=== PATIENT | male | born 1990 | race African-American/Black ===

== ENCOUNTER 2018-04-05 10:46 | Emergency (ER) | payer OTHER ==
[2018-04-05 11:42] LABS: GLUCOSE, URINE (UA) NEGATIVE (NEGATIVE); KETONES,URINE (UA) TRACE mg/dL (NEGATIVE); LEUKOCYTE ESTERASE, URINE MODERATE (NEGATIVE); NITRITE,URINE POSITIVE (NEGATIVE); OCCULT BLOOD,URINE TRACE-INTA (NEGATIVE); PROTEIN,URINE TRACE mg/dL (NEGATIVE); UROBILINOGEN,URINE 2 E.U./dL (NORMAL)
--- NOTE | 2018-04-05 11:52 | ED Physician Documentation ---
PD HPI MALE - Stated complaint Stated Complaint: MALE - Chief complaint Chief Complaint: Abd Pain - History obtained from History obtained from: Patient - History of Present Illness Timing - onset: How many days ago (several) Timing - duration: Days Timing - details: Gradual onset, Still present Associated symptoms: Dysuria, Discharge PD HPI MALE CONTRIB FACTORS: Sexually active Recently seen: Clinic (has had discharge several days and went to [facility] with urethral culture done, and has not heard back results. Was supposed to get results yesterday but did not and now is 3 days weekend and he does not want symptoms to go untreated. No meds from [facility] at the time of the visit.) Review of Systems Constitutional: denies: Fever, Chills Throat: denies: Sore throat GI: denies: Nausea, Vomiting : reports: Dysuria, Discharge PD PAST MEDICAL HISTORY - Past Medical History Cardiovascular: None Respiratory: None - Allergies Allergies/Adverse Reactions: Allergies Allergy/AdvReac Type Severity Reaction Status Date / Time No Known Drug Allergies Allergy Verified 04/05/18 10:55 PD ED PE NORMAL - Vitals Vital signs reviewed: Yes - General General: Alert and oriented X 3, No acute distress, Well developed/nourished - HEENT HEENT: Pharynx benign - Male Male : Other (external normal. Meatal redness. ) - Derm Derm: Normal color, Warm and dry Results - Vitals Vitals: Oxygen O2 Source Room air - Labs Labs: Microbiology 04/05/18 11:19 Urine Culture - Final Urine,Random NO AEROBIC GROWTH AT 24 HOURS Laboratory Tests 04/05/18 04/05/18 11:19 11:19 Urine Color DARK YELLOW Urine Clarity CLOUDY Urine pH 6.0 Ur Specific [place] 1.025 Urine Protein TRACE Urine Glucose (UA) NEGATIVE Urine Ketones TRACE Urine Occult Blood TRACE-INTA Urine Nitrite POSITIVE H Urine Bilirubin NEGATIVE Urine Urobilinogen 2 H Ur Leukocyte Esterase MODERATE H Urine RBC 6-10 H Urine WBC >25 H Ur Squamous Epith Cells RARE Squamous Urine Bacteria Few Ur Microscopic Review INDICATED Urine Culture Comments INDICATED C.trachomatis RNA (TMA) NOT DETECTED Chlamydia/GC Comment SEE NOTE N.gonorrhoeae RNA (TMA) DETECTED A PD MEDICAL DECISION MAKING - ED course Complexity details: considered differential (will treat for likely GC), d/w patient Departure - Departure Disposition: 01 Home, Self Care Clinical Impression: Urethritis Condition: Stable Record reviewed to determine appropriate education?: Yes Instructions: ED STD Male Treated Comments: The antibiotic combination he received here should be adequate treatment for gonorrhea and chlamydia. If the culture [place] the base or hours ends up showing a different germ, we may need to add and subsequently another antibiotic. Otherwise expect improvement over the next couple of days and resolution over 3- 5 days. Drink lots of fluids. Ibuprofen or Tylenol if needed for pains. Discharge Date/Time: 04/05/18 12:51
[2018-04-05 11:53] LABS: CLARITY,URINE CLOUDY (CLEAR)
[2018-04-05 11:56] LABS: BACTERIA,URINE Few /HPF (None Seen); BILIRUBIN,URINE NEGATIVE (NEGATIVE); ICTOTEST,URINE NEGATIVE; SQUAMOUS EPITHELIAL CELL,UR RARE Squamous (<= Few)
[2018-04-05] MEDS ORDERED: cefTRIAXone 500 MG VIAL IM STA (12:02)
[2018-04-05] MEDS ORDERED: AZITHROMYCIN 250 MG TABLET PO STA (12:02)
[2018-04-05] MEDS ORDERED: LIDOCAINE 1% 2 ML VIAL SUBQ ONE (12:02)
[2018-04-05 12:52] VITALS: BP 140/86
== END 2018-04-05 12:51 | disposition home or self-care (01) ==
LOC: ED 10:46
DX: N34.2 Other urethritis (principal)
CPT/HCPCS: 81001; 87086; 87491; 87591; 96372; 99283; A9270; 81003

== ENCOUNTER 2023-06-28 18:58 | Emergency (ER) | payer OTHER ==
[2023-06-28 19:54] LABS: BASOPHILS % (AUTO) 0.7 %; EOSINOPHILS # (AUTO) 0.1 10^3/uL (0.0-0.7); EOSINOPHILS % (AUTO) 2.9 %; HCT - HEMATOCRIT 44.4 % (42.0-52.0); HGB - HEMOGLOBIN 14.4 g/dL (14.0-18.0); LYMPHOCYTES # (AUTO) 1.4 10^3/uL (1.5-3.5); LYMPHOCYTES % (AUTO) 31.9 %; MEAN CORPUSCULAR HEMOGLOBIN 31.1 pg (27.0-31.0); MEAN CORPUSCULAR HGB CONC 32.4 g/dL (32.0-36.0); MEAN CORPUSCULAR VOLUME 95.9 fL (80.0-94.0); MEAN PLATELET VOLUME 8.9 fL (7.4-11.4); MONOCYTES # (AUTO) 0.6 10^3/uL (0.0-1.0); MONOCYTES % (AUTO) 13.1 %; NEUTROPHILS # (AUTO) 2.3 10^3/uL (1.5-6.6); NEUTROPHILS % (AUTO) 51.4 %; PLT - PLATELET COUNT 249 10^3/uL (130-450); RED BLOOD COUNT 4.63 10^6/uL (4.70-6.10); RED CELL DISTRIBUTION WIDTH 13.1 % (12.0-15.0); WHITE BLOOD COUNT 4.5 x10^3/uL (4.8-10.8)
[2023-06-28 20:02] LABS: ALBUMIN 4.8 g/dL (3.2-5.5); ALBUMIN/GLOBULIN RATIO 1.9 (1.0-2.2); BILIRUBIN,TOTAL 0.6 mg/dL (0.2-1.0); CREATININE 0.9 mg/dL (0.6-1.3); MAGNESIUM 1.8 mg/dL (1.7-2.3); POTASSIUM 4.1 mmol/L (3.5-4.5); TOTAL PROTEIN 7.3 g/dL (6.4-8.9)
--- NOTE | 2023-06-28 21:00 | ED Physician Documentation ---
History of Present Illness - Stated complaint Stated Complaint: ABNORMAL LABS - Chief complaint Chief Complaint: General - History obtained from History obtained from: Patient - Additonal information Additional information: 33yM previously healthy, with recent syncope vs seizure episode with +HT, loss of consciousness, with about 30 seconds of twitching activity, p/w multiple rounds of labwork since that time showing elevated ck. his most recent ck level, drawn yesterday was 1100. denies hematuria or other urinary symptoms, fever or pain anywhere. patient normally does do somewhat rigorous workouts but has been holding off since the seizure like episode. He was on a flight from [place] today and had to walk a lot and lift heavy bags at the airport. Review of Systems Constitutional: denies: Fever, Chills Cardiac: denies: Chest pain / pressure, Palpitations Respiratory: denies: Dyspnea GI: denies: Abdominal Pain, Nausea, Vomiting : denies: Dysuria, Frequency, Hematuria Musculoskeletal: denies: Back pain PD PAST MEDICAL HISTORY - Past Medical History Cardiovascular: None Respiratory: None Neuro: Seizure disorder Psych: Depression - Past Surgical History Past Surgical History: No - Present Medications Home Medications: Ambulatory Orders Medication Instructions Recorded Confirmed Sertraline [Zoloft] 100 mg PO DAILY 06/28/23 06/28/23 - Allergies Allergies/Adverse Reactions: Allergies Allergy/AdvReac Type Severity Reaction Status Date / Time No Known Drug Allergies Allergy Verified 06/28/23 19:21 - Social History Does the pt smoke?: No Smoking Status: Never smoker PD ED PE NORMAL - Vitals Vital signs reviewed: Yes - General General: Alert and oriented X 3, No acute distress, Well developed/nourished - HEENT HEENT: Atraumatic, PERRL, EOMI, Moist mucous membranes, Pharynx benign - Neck Neck: Supple, no meningeal sign - Cardiac Cardiac: RRR - Respiratory Respiratory: No respiratory distress, Clear bilaterally - Abdomen Abdomen: Non tender, Non distended - Back Back: No CVA TTP - Derm Derm: Normal color, Warm and dry - Extremities Extremities: No deformity, No edema, No calf tenderness / cord - Neuro Neuro: Alert and oriented X 3, No motor deficit, No sensory deficit - Psych Psych: Normal mood, Normal affect Results - Vitals Vitals: Vital Signs - 24 hr 06/28/23 19:13 Temperature 36.7 C Heart Rate 79 Respiratory 18 Rate Blood Pressure 167/91 H O2 Saturation 100 Oxygen O2 Source Room air - Labs Labs: Laboratory Tests 06/28/23 06/28/23 19:45 19:45 WBC 4.5 L RBC 4.63 L Hgb 14.4 Hct 44.4 MCV 95.9 H MCH 31.1 H MCHC 32.4 RDW 13.1 Plt Count 249 MPV 8.9 Neut # (Auto) 2.3 Lymph # (Auto) 1.4 L [place] # (Auto) 0.6 Eos # (Auto) 0.1 Baso # (Auto) 0.0 Absolute Nucleated RBC 0.00 Nucleated RBC % 0.0 Sodium 139 Potassium 4.1 Chloride 102 Carbon Dioxide 30 Anion Gap 7.0 BUN 11 Creatinine 0.9 Estimated GFR (MDRD) 119 Glucose 90 Calcium 10.0 Magnesium 1.8 Total Bilirubin 0.6 AST 40 ALT 50 Alkaline Phosphatase 49 Total Creatine Kinase 1392 H* Total Protein 7.3 Albumin 4.8 Globulin 2.5 Albumin/Globulin Ratio 1.9 Lipase 54 PD Medical Decision Making - ED course ED course: 33yM p/w multiple episodes of elevated ck after a seizure like episode last week. Per his report he had a head ct that was negative at that time. CK today in 1300s slightly uptrending from 1100 yesterday, possibly related to airplane travel today with physical lifting, prolonged standing/walking and less water intake than usual. IVF ordered and plan is for close follow up labwork with walk in clinic this week. He will also f/u with pcp for further workup of seizure like episode. return precautions given. Departure - Departure Disposition: 01 Home, Self Care Clinical Impression: Rhabdomyolysis Condition: Stable Instructions: ED Rhabdomyolysis Comments: You were seen in the emergency department for mild muscle breakdown. Your ck was 1,392 and your kidney function was normal. Please have follow up bloodwork this week to check it is downtrending. You should rest and drink lots of powerade, gatorade or pedialyte over the next couple days. Please also follow up with your primary care provider. Return to the ED for new or worsening symptoms or other concerns.
[2023-06-28] MEDS: SODIUM CHLORIDE 0.9% 1,000 ML IV STA ×2 (21:01→21:48)
[2023-06-28 21:33] VITALS: O2SAT 98
[2023-06-28 23:08] VITALS: BP 155/93
== END 2023-06-28 22:59 | disposition home or self-care (01) ==
LOC: ED 18:58
DX: M62.82 Rhabdomyolysis (principal); R56.9 Unspecified convulsions; F32.A Depression, unspecified
CPT/HCPCS: 36415; 80053; 82550; 83690; 83735; 85025; 96360; 96361; 99284

== ENCOUNTER 2023-06-30 15:53 | Emergency (ER) | payer OTHER ==
[2023-06-30 16:25] VITALS: BP 141/64; O2SAT 99
[2023-06-30 16:39] LABS: BASOPHILS % (AUTO) 0.8 %; EOSINOPHILS # (AUTO) 0.1 10^3/uL (0.0-0.7); EOSINOPHILS % (AUTO) 2.9 %; HCT - HEMATOCRIT 47.6 % (42.0-52.0); HGB - HEMOGLOBIN 15.5 g/dL (14.0-18.0); LYMPHOCYTES # (AUTO) 1.2 10^3/uL (1.5-3.5); LYMPHOCYTES % (AUTO) 29.9 %; MEAN CORPUSCULAR HEMOGLOBIN 31.4 pg (27.0-31.0); MEAN CORPUSCULAR HGB CONC 32.6 g/dL (32.0-36.0); MEAN CORPUSCULAR VOLUME 96.4 fL (80.0-94.0); MEAN PLATELET VOLUME 8.8 fL (7.4-11.4); MONOCYTES # (AUTO) 0.6 10^3/uL (0.0-1.0); MONOCYTES % (AUTO) 14.8 %; NEUTROPHILS % (AUTO) 51.3 %; PLT - PLATELET COUNT 288 10^3/uL (130-450); RED BLOOD COUNT 4.94 10^6/uL (4.70-6.10); RED CELL DISTRIBUTION WIDTH 13.2 % (12.0-15.0); WHITE BLOOD COUNT 3.8 x10^3/uL (4.8-10.8)
[2023-06-30 16:57] LABS: ALBUMIN 4.7 g/dL (3.2-5.5); ALBUMIN/GLOBULIN RATIO 1.6 (1.0-2.2); BILIRUBIN,TOTAL 0.7 mg/dL (0.2-1.0); CALCIUM 10.5 mg/dL (8.5-10.3); CREATININE 1.1 mg/dL (0.6-1.3); POTASSIUM 4.4 mmol/L (3.5-4.5); TOTAL PROTEIN 7.6 g/dL (6.4-8.9)
--- NOTE | 2023-06-30 17:10 | ED Physician Documentation ---
History of Present Illness - Stated complaint Stated Complaint: SAENZ/L ARM PX/ABNORMAL LABS - Chief complaint Chief Complaint: General - History obtained from History obtained from: Patient - History of Present Illness Timing: Today Pain level max: 3 Pain level now: 3 - Additonal information Additional information: 33-year-old male states that he had a seizure several days ago and [place]. He states it was a first-time seizure. He is [employer]. He states that his CK was elevated after the seizure. He was seen here 2 days ago and it was still elevated. He states he is concerned that it has not come down yet. He also states he has been having intermittent mild headaches. He states he had a negative head CT a few days ago in [place]. He states his left shoulder has felt sore with movement as well ever since the seizure occurred. No numbness or tingling. Worse with movement, better with rest. No recurrent seizures since the initial seizure. No falls. No trauma. Review of Systems Constitutional: denies: Fever, Chills Cardiac: denies: Chest pain / pressure Respiratory: denies: Cough Skin: denies: Rash Musculoskeletal: denies: Neck pain, Back pain Neurologic: denies: Focal weakness, Numbness, Syncope, Confused, Head injury, LOC PD PAST MEDICAL HISTORY - Past Medical History Cardiovascular: None Respiratory: None Neuro: Seizure disorder Psych: Depression - Past Surgical History Past Surgical History: No - Present Medications Home Medications: Ambulatory Orders Medication Instructions Recorded Confirmed Sertraline [Zoloft] 100 mg PO DAILY 06/28/23 06/30/23 - Allergies Allergies/Adverse Reactions: Allergies Allergy/AdvReac Type Severity Reaction Status Date / Time No Known Drug Allergies Allergy Verified 06/30/23 16:23 - Social History Does the pt smoke?: No Smoking Status: Never smoker PD ED PE NORMAL - Vitals Vital signs reviewed: Yes - General General: Alert and oriented X 3, No acute distress - HEENT HEENT: Atraumatic, PERRL, EOMI, Ears normal, Moist mucous membranes, Pharynx benign - Neck Neck: Supple, no meningeal sign, No bony TTP - Cardiac Cardiac: RRR - Respiratory Respiratory: No respiratory distress, Clear bilaterally - Abdomen Abdomen: Soft, Non tender, Non distended - Back Back: No spinal TTP - Derm Derm: Warm and dry - Extremities Extremities: No deformity, No tenderness to palpate, Other (Normal examination of the left shoulder. Full range of motion without any significant pain. No tenderness. Neurovascular intact including the axillary nerve.) - Neuro Neuro: Alert and oriented X 3, phone specialist 2-12 intact, No motor deficit, No sensory deficit, Normal speech Eye Opening: Spontaneous Motor: Obeys Commands Verbal: Oriented GCS Score: 15 - Psych Psych: Normal mood, Normal affect Results - Vitals Vitals: Vital Signs - 24 hr 06/30/23 16:20 Temperature 36.7 C Heart Rate 99 Respiratory 16 Rate Blood Pressure 141/64 H O2 Saturation 99 Oxygen O2 Source Room air - Labs Labs: Laboratory Tests 06/30/23 06/30/23 16:35 16:35 WBC 3.8 L RBC 4.94 Hgb 15.5 Hct 47.6 MCV 96.4 H MCH 31.4 H MCHC 32.6 RDW 13.2 Plt Count 288 MPV 8.8 Neut # (Auto) 2.0 Lymph # (Auto) 1.2 L [place] # (Auto) 0.6 Eos # (Auto) 0.1 Baso # (Auto) 0.0 Absolute Nucleated RBC 0.00 Nucleated RBC % 0.0 Sodium 139 Potassium 4.4 Chloride 102 Carbon Dioxide 32 Anion Gap 5.0 L BUN 8 Creatinine 1.1 Estimated GFR (MDRD) 94 Glucose 67 L Calcium 10.5 H Total Bilirubin 0.7 AST 28 ALT 41 Alkaline Phosphatase 45 Total Creatine Kinase 696 H Total Protein 7.6 Albumin 4.7 Globulin 2.9 Albumin/Globulin Ratio 1.6 PD Medical Decision Making - ED course Complexity details: reviewed results, re-evaluated patient, considered differential, d/w patient ED course: No indication for repeat imaging today. He states that he had neuroimaging in [place]. Laboratory studies did not show any significant abnormalities other than a continued mild elevated CK level, but this is continuing to downtrend. Normal creatinine. No indication for x-ray of the shoulder at this time. Likely strain from the seizure. [place] will [place] better access to his records. They can also help him with referrals to neurology/EEG as needed. Patient counseled regarding signs and symptoms for which I believe and urgent re- evaluation would be necessary. Patient with good understanding of and agreement to plan and is comfortable going home at this time This document was made in part using voice recognition software. While efforts are made to proofread this document, sound alike and grammatical errors may occur. Departure - Departure Disposition: 01 Home, Self Care Clinical Impression: Elevated creatine kinase Condition: Good Instructions: ED Seizure New Onset Unk Cause Follow-Up: [facility] [Provider Group] - Tomorrow Comments: Please follow-up with the [facility] tomorrow for further care. They should have access to your records from [place] and be able to help you with referrals to neurology. Please return if you worsen. Would recommend Motrin or Tylenol as needed for pain. Forms: PCP List Discharge Date/Time: 06/30/23 17:32
== END 2023-06-30 17:32 | disposition home or self-care (01) ==
LOC: ED 15:53
DX: R74.8 Abnormal levels of other serum enzymes (principal); R56.9 Unspecified convulsions; R51.9 Headache, unspecified
CPT/HCPCS: 36415; 80053; 82550; 85025; 99283; 99284

== ENCOUNTER 2023-09-30 12:55 | Outpatient (CLI) | payer OTHER | END 2023-09-30 12:56 | disposition home or self-care (01) | LOC: DI 12:55 | DX: R56.9 Unspecified convulsions (principal) | CPT/HCPCS: 93307 ==